=== PATIENT | female | born 1995 | race Asian ===

== ENCOUNTER → 2020-01-01 | Outpatient (CLI) | payer OTHER ==
[~2020-01-01] VITALS: Ht 171.4 cm; Wt 170.6 kg
[~2020-01-01] MED LIST: INDERAL 10MG10 MG PO; MOBIC 7.5MG7.5 MG PO; NEXPLANON68 MG ID; NO HOME MEDICATIONS; NORCO 325 MG-51 TAB PO; PROTONIX 40MG T40 MG PO; SYNTHROID 0.10.15 MG PO; ZOFRAN 4MG T4 MG/TAB PO; ZOFRAN ODT4 MG PO
[2020-01-01 09:35] VITALS: BP 98/72; PULSE 79
== END ==
LOC: LIGHT
DX: E66.01 Morbid (severe) obesity due to excess calories (principal); Z68.43 Body mass index [BMI] 50.0-59.9, adult; E03.9 Hypothyroidism, unspecified; M54.5 Low back pain
CPT/HCPCS: G0463

== ENCOUNTER → 2020-02-04 | Outpatient (CLI) | payer OTHER ==
[~2020-02-04] VITALS: Ht 171.4 cm; Wt 168.7 kg
[2020-02-04 16:06] VITALS: BP 106/60; PULSE 60
== END ==
LOC: LIGHT 10:25
DX: E66.01 Morbid (severe) obesity due to excess calories (principal); Z68.43 Body mass index [BMI] 50.0-59.9, adult; M54.5 Low back pain; E03.9 Hypothyroidism, unspecified
CPT/HCPCS: G0463